=== PATIENT | female | born 1985 | race Caucasian/White ===

== ENCOUNTER 2016-07-27 19:33 | Emergency (ER) | payer OTHER, MEDICAID ==
[2016-07-27 21:05] VITALS: BP 121/50
[2016-07-27 21:58] LABS: ABSOLUTE BASOPHILS # (AUTO) 0.1 10^3/uL (0.0-0.2); ABSOLUTE EOSINOPHILS # (AUTO) 0.1 10^3/uL (0.0-0.6); ABSOLUTE LYMPHOCYTES (AUTO) 3.1 10^3/uL (0.5-4.7); ABSOLUTE MONOCYTES (AUTO) 0.5 10^3/uL (0.1-1.4); ABSOLUTE NEUT (AUTO) 3.8 10^3/uL (1.7-8.2); BASOPHILS % (AUTO) 0.7 % (0-2); HEMATOCRIT 42.8 % (36.0-47.0); HEMOGLOBIN 14.4 g/dL (12.0-15.5); HGB HCT DIFFERENCE 0.4; MEAN CORPUSCULAR HEMOGLOBIN 31.7 pg (27.0-33.4); MEAN CORPUSCULAR HGB CONC 33.7 g/dL (32.0-36.0); MEAN CORPUSCULAR VOLUME 94 fl (80-97); MONOCYTES % (AUTO) 6.5 % (3-13); RED BLOOD COUNT 4.54 10^6/uL (3.72-5.28); RED CELL DISTRIBUTION WIDTH 12.5 % (11.5-14.0); SEGMENTED NEUTROPHILS % (AUTO) 49.8 % (42-78); WHITE BLOOD COUNT 7.5 10^3/uL (4.0-10.5)
[2016-07-27 22:03] LABS: APPEARANCE,URINE CLOUDY; BILIRUBIN,URINE NEGATIVE (NEGATIVE); CALCIUM OXALATE CRYSTALS,URINE FEW /HPF; GLUCOSE, URINE NEGATIVE (NEGATIVE); KETONES,URINE NEGATIVE (NEGATIVE); LEUKOCYTE ESTERASE,URINE NEGATIVE (NEGATIVE); NITRITE,URINE NEGATIVE (NEGATIVE); PROTEIN,URINE NEGATIVE (NEGATIVE); URINE SPECIFIC GRAVITY 1.024; UROBILINOGEN,URINE NEGATIVE mg/dL (<2.0)
[2016-07-27 22:17] LABS: ALANINE AMINOTRANSFERASE 23 U/L (9-52); ALBUMIN 4.8 g/dL (3.5-5.0); ALKALINE PHOSPHATASE 61 U/L (38-126); ANION GAP 15 (5-19); ASPARTATE AMINO TRANSFERASE 16 U/L (14-36); BILIRUBIN,DIRECT 0.3 mg/dL (0.0-0.4); BILIRUBIN,TOTAL 0.5 mg/dL (0.2-1.3); BLOOD UREA NITROGEN 10 mg/dL (7-20); CALCIUM 10.2 mg/dL (8.4-10.2); CARBON DIOXIDE 24 mmol/L (22-30); CHLORIDE 106 mmol/L (98-107); CREATININE RESULT 0.97 mg/dL (0.52-1.25); GLUCOSE 93 mg/dL (75-110); LIPASE 76.5 U/L (23-300); POTASSIUM 4.5 mmol/L (3.6-5.0); SODIUM 144.5 mmol/L (137-145)
== END 2016-07-28 20:40 | disposition home or self-care (01) ==
LOC: ER 19:33
DX: Z53.21 Procedure and treatment not carried out due to patient leaving prior to being seen by health care provider (principal)
CPT/HCPCS: 36415; 80053; 81001; 83690; 85025

== ENCOUNTER 2016-07-28 11:54 | Emergency (ER) | payer MEDICAID, OTHER ==
--- NOTE | 2016-07-28 13:33 | ER Document Report ---
ED Medical Screen (RME) - General Chief Complaint: Flank Pain Stated Complaint: RIGHT SIDE PAIN,URINARY PROBLEMS Time Seen by Provider: 07/28/16 13:17 Notes: Patient says that she feels that she is passing another stone. Has a history of previous kidney stones requiring lithotripsy. She had pain like a stone passing on Monday and her symptoms went away, but came back yesterday and last night. Pain is located in the right lower quadrant. Has had nausea but not vomiting. Has not had any fever. Came here last night and had blood work done , but did not wait to be seen because the weight was estimated at 8 hours. Reviewing her lab work from last night shows a normal CBC, comp 12, and urinalysis with small amount of bacteria. Patient just recently moved to this area in May and has not seen a local urologist here. PMH: Hysterectomy. Hypothyroid TRAVEL OUTSIDE OF THE [place] IN LAST 30 DAYS: No - Related Data Allergies/Adverse Reactions: NSAIDS (Non-Steroidal Anti-Inflamma Allergy (Verified 07/28/16 12:12) Past Medical History Renal/ Medical History: Denies: Hx Peritoneal Dialysis Physical Exam - Vital signs Vitals: Temp Pulse Resp BP Pulse Ox 97.9 F 49 L 16 108/61 99 07/28/16 12:12 07/28/16 12:12 07/28/16 12:12 07/28/16 12:12 07/28/16 12:12 Course - Vital Signs Vital signs: Temp Pulse Resp BP Pulse Ox 97.9 F 49 L 16 108/61 99 07/28/16 12:12 07/28/16 12:12 07/28/16 12:12 07/28/16 12:12 07/28/16 12:12
[2016-07-28 13:53] LABS: APPEARANCE,URINE SLIGHTLY-CLOUDY; BILIRUBIN,URINE NEGATIVE (NEGATIVE); GLUCOSE, URINE NEGATIVE (NEGATIVE); KETONES,URINE NEGATIVE (NEGATIVE); LEUKOCYTE ESTERASE,URINE NEGATIVE (NEGATIVE); NITRITE,URINE NEGATIVE (NEGATIVE); PROTEIN,URINE NEGATIVE (NEGATIVE); UROBILINOGEN,URINE NEGATIVE mg/dL (<2.0)
--- NOTE | 2016-07-28 14:51 | ER Document Report ---
ED General - General Chief Complaint: Flank Pain Stated Complaint: RIGHT SIDE PAIN,URINARY PROBLEMS Time Seen by Provider: 07/28/16 13:17 Mode of Arrival: Ambulatory Information source: Patient Notes: Patient presents to the emergency department with complaints of right-sided flank pain that started on Monday. She reports that she has a history of kidney stones and thinks she may have passed one on Monday. She also reports it is hard to urinate and have a bowel movement due to the pain. She reports last bowel movement was yesterday, diarrhea. She reports history of kidney stones, arthritis and hypothyroidism. Patient denies fever vomiting reports some nausea. TRAVEL OUTSIDE OF THE [place] IN LAST 30 DAYS: No - HPI Onset: Other - monday Onset/Duration: Persistent Quality of pain: Achy Severity: Severe Pain Level: 4 Associated symptoms: Nausea Exacerbated by: Denies Relieved by: Denies Similar symptoms previously: Yes Recently seen / treated by doctor: No - Related Data Allergies/Adverse Reactions: NSAIDS (Non-Steroidal Anti-Inflamma Allergy (Verified 07/28/16 12:12) Past Medical History - General Information source: Patient Last Menstrual Period: 2013 partial hyst - Social History Smoking Status: Unknown if Ever Smoked Cigarette use (# per day): No Frequency of alcohol use: None Drug Abuse: None Lives with: Family Family History: Reviewed & Not Pertinent Patient has suicidal ideation: No Patient has homicidal ideation: No Endocrine Medical History: Reports: Hx Hypothyroidism Renal/ Medical History: Reports: Hx Kidney Stones. Denies: Hx Peritoneal Dialysis Musculoskeltal Medical History: Reports Other - chronic back pain Past Surgical History: Reports: Hx Hysterectomy, Hx Kidney (Renal Surgery) - lithotripsy Review of Systems - Review of Systems Notes: Review HPI for review of systems., All other systems negative Physical Exam - Vital signs Vitals: Temp Pulse Resp BP Pulse Ox 97.9 F 49 L 16 108/61 99 07/28/16 12:12 07/28/16 12:12 07/28/16 12:12 07/28/16 12:12 07/28/16 12:12 - Notes Notes: PHYSICAL EXAMINATION: GENERAL: Well-appearing and in no acute distress HEAD: Atraumatic, normocephalic. EYES: Pupils equal round and reactive to light, extraocular movements intact, sclera anicteric, conjunctiva are normal. ENT: nares patent, oropharynx clear without exudates. Moist mucous membranes. NECK: Normal range of motion, supple without lymphadenopathy LUNGS: CTAB and equal. No wheezes rales or rhonchi. HEART: Regular rate and rhythm without murmurs ABDOMEN: Soft, no tenderness. No guarding, no rebound no c/o pain with palpation BACK: Denies pain, denies CVA tenderness EXTREMITIES: Normal range of motion, no pitting edema. No cyanosis. NEUROLOGICAL: Cranial nerves grossly intact. Normal sensory/motor exams. PSYCH: Normal mood, normal affect. SKIN: Warm, Dry, normal turgor, no rashes or lesions noted Course - Re-evaluation Re-evalutation: 07/28/16 15:11 Labs unremarkable, controlled substance reporting system reviewed. patient on pain management. Patient just received 40 tabs with hydromorphone 2 mg on July 20. At first patient denied other medications but she suddenly remembered the pain management after some discussion. Patient was instructed on her labs instructed to follow-up with urology. She does have [facility] and primary care provider to follow-up with. Patient was instructed to take her pain medication. - Vital Signs Vital signs: Temp Pulse Resp BP Pulse Ox 98.0 F 56 L 16 112/62 100 07/28/16 15:10 07/28/16 15:10 07/28/16 15:10 07/28/16 15:10 07/28/16 15:10 - Diagnostic Test Radiology reviewed: Image reviewed, Reports reviewed - US/U/ S ABDOMEN LIMITED W/O DOP IMPRESSION: APPENDIX and right ovary NOT IDENTIFIED. ACTIVE PERISTALSIS US/U/S RETROPERITON (RENAL/AORTA) IMPRESSION: 1 CM CYST IN THE LEFT KIDNEY. OTHERWISE UNREMARKABLE RENAL ULTRASOUND Discharge - Discharge Clinical Impression: Flank pain Condition: Stable Disposition: HOME, SELF-CARE Instructions: Flank Pain ([facility]), Family Physicians / Practices Additional Instructions: *You have been evaluated for flank pain, history of kidney stones *The ultrasound showed a 1cm cyst in the left kidney *Take your pain medication as prescribed *Follow up with a primary care provider within one week for a recheck *Follow up with a urologist for evaluation *Return to ED for worsening condition, changes, needs *Return to ED if not better in 24 hours
[2016-07-28 15:16] VITALS: BP 112/62
== END 2016-07-28 15:10 | disposition home or self-care (01) ==
LOC: ER 11:54
DX: R10.9 Unspecified abdominal pain (principal); R19.7 Diarrhea, unspecified; R11.0 Nausea; Q61.01 Congenital single renal cyst; M19.90 Unspecified osteoarthritis, unspecified site; M54.9 Dorsalgia, unspecified; G89.29 Other chronic pain; Z79.891 Long term (current) use of opiate analgesic; Z88.8 Allergy status to other drugs, medicaments and biological substances; Z90.711 Acquired absence of uterus with remaining cervical stump; Z87.442 Personal history of urinary calculi
CPT/HCPCS: 76705; 76770; 81001; 87086; 87088; 87186; 99284

== ENCOUNTER → 2017-08-01 | Day surgery (SDC) | payer OTHER ==
[~2017-08-01] MED LIST: BUPIVACAINE HCL 0.5 % INJ/PF 30 ML SDV ONE; LIDOCAINE 1% INJ-PF (10 MG/ML) 30 ML SDV ONE; LIDOCAINE 2% INJ (20 MG/ML) 20 ML MDV ONE; METHYLPREDNISOLONE ACETATE INJ 40 MG/1 ML ML ONE
--- NOTE | 2017-08-01 09:46 | Operative Report ---
PREOPERATIVE DIAGNOSIS: Lumbar Spondylosis POSTOPERATIVE DIAGNOSIS: Lumbar Spondylosis PROCEDURE: Radiofrequency Ablation of medial branches - RT L3 L4 L5 DATE OF PROCEDURE: [08/01/17] ANESTHESIA: [local, valium po] COMPLICATIONS: [none] CONSENT: A full description of the procedure was provided including benefits as well as possible complications. All questions were answered and informed consent was given and signed. ASA guidelines for fasting were verified prior to sedation. PROCEDURE IN DETAIL The patient was brought into the fluoroscopy suite and positioned into the prone position on the fluoroscopy table and allowed to adjust to a position of comfort. A grounding pad was placed on the [LEFT] thigh. The lumbar region was widely prepped with a chloraprep solution, allowed to air dry and draped in standard sterile surgical fashion. Local anesthesia was provided by [1] mL of [1 ]% [lidocaine ]delivered with a 25 g needle. A 17g 75mm radiofrequency introducer needle was placed to the planned anatomic targets guided with intermittent fluoroscopy with a perpendicular approach to terminally place at the junction of the superior articular process and the transverse process of the [RIGHT] L4 L5 and the base of the sacral ala on the [ RIGHT] for the L5 medial branch nerve. The stylets were removed and radiofrequency probes with a 4mm active tip were then inserted. Needle tip position of the probes was verified in the AP, oblique, and lateral views. At each site, the medial branch nerve was stimulated at 2 Hz to a maximum 1-2 volts determined to finalize safe needle and electrode placement. The patient was awake and responsive during this portion of the procedure. Each target was anesthetized with 1-2 mL of [2]% [lidocaine] for anesthesia for lesioning and then each target was lesioned at 80 degrees Celsius for 2 minutes and 30 seconds. Tissue impedences were noted to be between 250 and 500 Ohms. A solution of 40mg depomedrol and 0.25% sensorcaine of 1 cc at each level was injected. Electrodes and needles were then removed and bandages placed over the needle placement sites, the patient then returned to the supine position on a stretcher and transported to the recovery room without hemodynamic, neurologic, or allergic reactions. Fluoroscopic images were printed for hard copy recording and digitally archived. POST PROCEDURE EVALUATION: The patient was comfortable in the recovery room. The patient is aware that pain may worsen before remitting and 4 6 weeks may be required prior to the onset of pain relief. IMPRESSION: 1. Technically successful [RIGHT] L3 L4 L5 medial branch radiofrequency neurotomy for denervation on the [RIGHT] without complication. 2. RTC in [4-6] weeks. 3. Estimated Blood Loss: [1 cc] 4. Fluoroscopy time: see nursing record 5. Patient will rock picker post procedure pain script at our office. Nucynta 75mg Q4-6 hours prn post procedure pain #[id number]
== END ==
LOC: RAD 08:36
PROVIDERS: ATTEND Student in an Organized Health Care Education/Training Program
DX: M47.816 Spondylosis without myelopathy or radiculopathy, lumbar region (principal)
CPT/HCPCS: 64635; 64636; J3490 ×3; J1020